=== PATIENT | male | born 1940 | race Caucasian/White ===

== ENCOUNTER 2016-06-05 08:36 | Day surgery (SDC) | payer MEDICARE, BC ==
[2016-06-05] MEDS ORDERED: Sodium Chloride 0.9% 1,000 ML IV SCH (09:00)
[2016-06-05] MEDS ORDERED: Propofol 200 MG/20 ML SDV ONE (09:41)
[2016-06-05] MEDS ORDERED: Midazolam 1 MG/ML 2 ML SDV ONE (09:41)
[2016-06-05] MEDS ORDERED: fentaNYL 100 MCG/2 ML SDV ONE (09:41)
[2016-06-05 11:46] VITALS: BP 134/61
--- NOTE | 2016-06-05 12:25 | OR ---
DATE OF PROCEDURE: 06/05/2016 PROCEDURE: Colonoscopy. FINDINGS: Normal colonoscopy. PREOPERATIVE DIAGNOSIS: Screening colonoscopy. POSTOPERATIVE DIAGNOSIS: Screening colonoscopy. RISKS: Risks, benefits, alternatives, and limitations, including, but not limited to infection, bleeding, and perforation were explained to the patient. PROCEDURE IN DETAIL: The patient was placed in left lateral decubitus position. Digital rectal exam was performed without abnormality. The scope was introduced and advanced atraumatically to the ileocecal valve. The scope was brought back to the ascending, transverse, descending colon, and retroflexed. No evidence of old or new blood. No polyps. No masses. The patient tolerated the procedure well. Jose Mark MD /[id number]
== END 2016-06-05 11:40 | disposition home or self-care (01) ==
LOC: JP.SDS 08:36
PROVIDERS: ATTEND Surgery
DX: Z12.11 Encounter for screening for malignant neoplasm of colon (principal); I10 Essential (primary) hypertension; R73.03 Prediabetes; E66.9 Obesity, unspecified; Z79.899 Other long term (current) drug therapy; F17.290 Nicotine dependence, other tobacco product, uncomplicated
CPT/HCPCS: G0121; J2250; J2704; J3010; J7040

== ENCOUNTER 2017-06-23 11:36 | Emergency (ER) | payer MEDICARE, BC ==
[2017-06-23] MEDS ORDERED: Aspirin 325 MG Tab.EC PO ONE (12:25)
--- NOTE | 2017-06-23 12:30 | EDM.PDOC ---
ED HPI GENERAL MEDICAL PROBLEM - General Chief Complaint: General Stated Complaint: LIGHTHEADED Time Seen by Provider: 06/23/17 12:12 Source of Information: Reports: Patient, Family, RN Notes Reviewed History Limitations: Reports: No Limitations - History of Present Illness INITIAL COMMENTS - FREE TEXT/NARRATIVE: 77-year-old gentleman presents to the emergency department day complaint of left -sided weakness. He states he woke up this morning feeling fine was able to ambulate without difficulty however at 8:30 this morning started having symptoms he had difficulty moving his left leg he had gait instability problems and had difficulty with fine motor skills on his left hand. He presents to the emergency department 4 hours later for further evaluation. At this time he feels his symptoms have almost completely resolved he does have some numbness and tingling in his feet and he feels his gait is still wobbly but improving. He does have a history of diabetes mellitus type 2 as well as hypertension, at this time his ABCD squared score is 7 - Related Data Allergies Allergy/AdvReac Type Severity Reaction Status Date / Time No Known Allergies Allergy Verified 06/05/16 09:02 Home Meds: Home Meds Aspirin [Halfprin] 81 mg PO DAILY 06/03/16 [History] Calcium Carbonate [Calcium] 600 mg PO DAILY 06/03/16 [History] Cetirizine [ZyrTEC] 10 mg PO DAILY 06/03/16 [History] Cyanocobalamin (Vitamin B12) [Vitamin B12] 250 mcg PO .Q48 06/03/16 [History] Ketotifen Fumarate [Zaditor] 1 drop OP BID 06/03/16 [History] Lisinopril 10 mg PO DAILY 06/03/16 [History] Mometasone Furoate [Nasonex] 2 sprays NS DAILY 06/03/16 [History] Multivitamin with Minerals [Jamal Multivitamin with Mineral] 1 tab PO DAILY 06/03 [History] Potassium Gluconate 90 mg PO DAILY 06/03/16 [History] Pyridoxine HCl [Vitamin B-6] 25 mg PO DAILY 06/03/16 [History] Zinc 50 mg PO .Q48 06/03/16 [History] metFORMIN [Glucophage] 500 mg PO BIDMEALS 06/03/16 [History] Past Medical History HEENT History: Reports: Allergic Rhinitis, Hard of Hearing, Impaired Vision, Other (See Below) Other HEENT History: Dry eye syndrome Cardiovascular History: Reports: Hypertension Musculoskeletal History: Reports: Back Pain, Chronic Endocrine/Metabolic History: Reports: Diabetes, Type II, Obesity/BMI 30+ - Infectious Disease History Infectious Disease History: Reports: Chicken Pox, Measles, Mumps - Past Surgical History Cardiovascular Surgical History: Reports: None GI Surgical History: Reports: Colonoscopy Social & Family History - Tobacco Use Smoking Status *Q: Light Tobacco Smoker Years of Tobacco use: 50 Packs/Tins Daily: 0 Second Hand Smoke Exposure: No - Caffeine Use Caffeine Use: Reports: Coffee - Alcohol Use Days Per Week of Alcohol Use: 7 Number of Drinks Per Day: 1 Total Drinks Per Week: 7 - Recreational Drug Use Recreational Drug Use: No ED ROS GENERAL - Review of Systems Review Of Systems: See Below Constitutional: Reports: No Symptoms HEENT: Reports: No Symptoms Respiratory: Reports: No Symptoms Cardiovascular: Reports: No Symptoms GI/Abdominal: Reports: No Symptoms : Reports: No Symptoms Musculoskeletal: Reports: No Symptoms Skin: Reports: No Symptoms Neurological: Reports: Numbness, Tingling, Difficulty Walking, Weakness (Left side), Gait Disturbance. Denies: Trouble Speaking ED EXAM, GENERAL - Physical Exam Exam: See Below Free Text/Narrative:: General: Male, not in any distress, alert and oriented x3 HEENT: head is atraumatic normocephalic, eyes pupils equal round reactive to light, sclera clear no conjunctivitis appreciated. Ears tympanic membranes clear and phillips landmarks and light reflex are present bilaterally canals are clear. Nose no septal deviation, nares are clear, no blood present. Mouth mucosa is moist and pink no erythema or exudate noted in soft palate, tongue is midline uvula is midline, dentition is intact. Neck: Supple no thyromegaly no tracheal deviation. Nodes: Cervical nodes subclavicular nodes nontender no palpable lymphadenopathy noted. Lungs: clear to auscultation bilaterally with symmetrical respirations, no adventitious noise appreciated. CV: Regular rate and rhythm S1 and S2 appreciated no murmurs rubs or gallops noted. Abdomen: Soft, nontender, no palpable masses or organomegaly appreciated, no distention no guarding bowel sounds are present, . Neuro: Cranial nerves II through XII grossly intact, power is 5 out 5 in upper and lower extremities, patellar reflex, biceps reflex +2 can do finger to nose without difficulty no dysdiadochokinesis no difficulty with rapid alternating movements can do [id number] without difficulty Romberg is negative, has adequate gait can do heel to toe, can toe walk and heel walk no cerebellar dysfunction no focal neurologic deficit Skin: Warm and dry, intact Extremities: No lower extremity edema appreciated, Course - Vital Signs Last Recorded V/S: Last Vital Signs Temp 98.8 F 06/23/17 11:58 Pulse 81 06/23/17 13:50 Resp 17 06/23/17 13:50 BP 147/74 H 06/23/17 13:50 Pulse Ox 95 06/23/17 13:50 - Orders/Labs/Meds Orders: Active Orders 24 hr Category Date Time Status EKG 12 Lead [EK] Urgent Ther 06/23/17 12:21 Ordered Labs: Laboratory Tests 06/23/17 06/23/17 06/23/17 Range/Units 12:33 12:33 12:33 WBC 8.2 (4.5-11.0) K/uL RBC 4.72 (4.30-5.90) M/uL Hgb 14.5 (12.0-15.0) g/dL Hct 43.0 (40.0-54.0) % MCV 91 (80-98) fL MCH 31 (27-31) pg MCHC 34 (32-36) % Plt Count 219 (150-400) K/uL Neut % (Auto) 59 (36-66) % Lymph % (Auto) 27 (24-44) % [place] % (Auto) 11 H (2-6) % Eos % (Auto) 3 (2-4) % Baso % (Auto) 0 (0-1) % ESR 11 (0-20) mm/hr PT 10.6 (9.5-12.0) sec INR 0.99 (0.80-1.20) APTT 26.4 L (27.0-36.0) sec Sodium 140 (140-148) mmol/L Potassium 4.0 (3.6-5.2) mmol/L Chloride 103 (100-108) mmol/L Carbon Dioxide 26 (21-32) mmol/L Anion Gap 11.1 (5.0-14.0) mmol/L BUN 13 (7-18) mg/dL Creatinine 0.8 (0.8-1.3) mg/dL Est Cr Clr Drug Dosing 79.78 mL/min Estimated GFR (MDRD) > 60 (>60) Glucose 94 (74-106) mg/dL Calcium 8.3 L (8.5-10.1) mg/dL Total Bilirubin 0.4 (0.2-1.0) mg/dL AST 24 (15-37) U/L ALT 32 (12-78) U/L Alkaline Phosphatase 87 (46-116) U/L Total Protein 7.1 (6.4-8.2) g/dL Albumin 3.8 (3.4-5.0) g/dL Globulin 3.3 (2.3-3.5) g/dL Albumin/Globulin Ratio 1.2 (1.2-2.2) Meds: Medications Discontinued Medications Generic Name Dose Route Start Last Admin Trade Name Freq PRN Reason Stop Dose Admin Aspirin 325 mg 06/23/17 12:25 06/23/17 12:30 Ecotrin PO 06/23/17 12:26 325 mg ONETIME ONE Administration Departure - Departure Time of Disposition: 14:35 Disposition: DC/Tfer to Acute Hospital 02 Condition: Fair Clinical Impression: Transient left leg weakness - Discharge Information Referrals: PCP,None [Primary Care Provider] - Forms: ED Department Discharge Additional Instructions: Please report to the emergency department at [facility] for further evaluation - My Orders Last 24 Hours: My Active Orders 06/23/17 12:21 EKG 12 Lead [EK] Urgent - Assessment/Plan Last 24 Hours: My Active Orders 06/23/17 12:21 EKG 12 Lead [EK] Urgent Plan: Assessment Acuity = acute Site and laterality = left-sided weakness complicated patient with known history of hypertension and diabetes mellitus type 2 Etiology = unclear etiology concern for transient ischemic event Manifestations = none of symptoms have resolved Location of injury = Home Lab values = CBC, CMP, sedimentation rate all negative EKG demonstrates normal sinus rhythm CT scan of the head shows no acute process Plan Called discussed case with Dr. Urias neurologist on-call at [facility] recommended further evaluation and then talked with emergency room physician Dr. Eckert kindly accepted the patient for further evaluation at their facility because he is been asymptomatic he will be transported private vehicle with family members This note was dictated using [employer] voice recognition software please call with any questions on syntax or andrew.
--- NOTE | 2017-06-23 12:57 | CT ---
Head wo Cont INDICATION: Left-sided weakness. Comparison: None. FINDINGS: No acute intracranial hemorrhage, mass, or edema. Generalized cerebral and cerebellar volu me loss. Patchy low attenuation in the periventricular and subcortical deep white matter is nonspecif ic, but most compatible with chronic small-vessel ischemic changes. Remainder unremarkable. IMPRESSION: No acute intracranial abnormality.
[2017-06-23 13:52] VITALS: BP 147/74
== END 2017-06-23 14:59 ==
LOC: JP.ED 11:36
DX: R29.898 Other symptoms and signs involving the musculoskeletal system (principal); I10 Essential (primary) hypertension; E11.9 Type 2 diabetes mellitus without complications; E66.9 Obesity, unspecified; F17.210 Nicotine dependence, cigarettes, uncomplicated; Z79.82 Long term (current) use of aspirin; Z79.899 Other long term (current) drug therapy
CPT/HCPCS: 36415; 70450; 80053; 85025; 85610; 85651; 85730; 93005; 99285; A9270

== ENCOUNTER 2020-09-17 13:34 | Emergency (ER) | payer MEDICARE, BC ==
[2020-09-17] MEDS ORDERED: diphenhydrAMINE 50 MG/ML SDV IVPUSH ONE ×2 (13:39→14:48)
[2020-09-17] MEDS ORDERED: methylPREDNISolone Sodium Succinate 125 MG/2 ML SDV IVPUSH ONE (13:40)
--- NOTE | 2020-09-17 14:24 | EDM.PDOC ---
ED HPI GENERAL MEDICAL PROBLEM - General Chief Complaint: Allergic Reaction Stated Complaint: STUNG BY ABOUT 6 HORNETS Time Seen by Provider: 09/17/20 13:50 Source of Information: Reports: Patient History Limitations: Reports: No Limitations - History of Present Illness INITIAL COMMENTS - FREE TEXT/NARRATIVE: 80-year-old male got stung by several wasps about an hour and a half ago, now has generalized hives, itching, somewhat lightheaded but no shortness of breath. Does not feel like his airway is swollen or having difficulty swallowing. No headache. He has not taken anything. He has no past history of allergic reactions to insect bites or stings. Onset: Sudden Duration: Hour(s): (1-1/2 hours ago) Location: Reports: Generalized (Rash is generalized, but worse on his chest and upper extremities) Associated Symptoms: Reports: Malaise, Other (Generalized pruritus) - Related Data Allergies Allergy/AdvReac Type Severity Reaction Status Date / Time No Known Allergies Allergy Verified 09/17/20 13:51 Home Meds: Home Meds Aspirin [Halfprin] 81 mg PO DAILY 06/03/16 [History] Calcium Carbonate [Calcium] 600 mg PO DAILY 06/03/16 [History] Cetirizine [ZyrTEC] 10 mg PO BID 06/03/16 [History] Ketotifen Fumarate [Zaditor] 1 drop OP BID 06/03/16 [History] Lisinopril 10 mg PO DAILY 06/03/16 [History] Mometasone Furoate [Nasonex] 2 sprays NS DAILY 06/03/16 [History] Multivitamin with Minerals [Jamal Multivitamin with Mineral] 1 tab PO DAILY 06/03/16 [History] Potassium Gluconate 90 mg PO DAILY 06/03/16 [History] Zinc 50 mg PO .Q48 06/03/16 [History] metFORMIN [Glucophage] 500 mg PO BIDMEALS 06/03/16 [History] Clopidogrel [Plavix] 75 mg PO DAILY 09/17/20 [History] Past Medical History HEENT History: Reports: Allergic Rhinitis, Hard of Hearing, Impaired Vision, Other (See Below) Other HEENT History: Dry eye syndrome Cardiovascular History: Reports: Hypertension Gastrointestinal History: Reports: None Musculoskeletal History: Reports: Back Pain, Chronic Endocrine/Metabolic History: Reports: Diabetes, Type II, Obesity/BMI 30+ - Infectious Disease History Infectious Disease History: Reports: Chicken Pox, Measles, Mumps - Past Surgical History GI Surgical History: Reports: Colonoscopy Social & Family History - Tobacco Use Tobacco Use Status *Q: Never Tobacco User - Caffeine Use Caffeine Use: Reports: Coffee - Alcohol Use Days Per Week of Alcohol Use: 7 Number of Drinks Per Day: 2 Total Drinks Per Week: 14 - Recreational Drug Use Recreational Drug Use: No ED ROS ALLERGIC REACTION - Review of Systems Review Of Systems: See Below Constitutional: Denies: Fever, Chills HEENT: Denies: Throat Pain, Vision Change Respiratory: Denies: Shortness of Breath, Cough GI/Abdominal: Denies: Nausea, Vomiting Skin: Reports: Rash (Widespread hives) Neurological: Denies: Headache ED EXAM GENERAL NO PERIP PULSE - Physical Exam Exam: See Below Exam Limited By: No Limitations General Appearance: Alert, Anxious Eye Exam: Bilateral Eye: EOMI, PERRL Throat/Mouth: Normal Inspection Head: Atraumatic Respiratory/Chest: No Respiratory Distress, Lungs Clear Neurological: Alert, Oriented Psychiatric: Anxious Skin Exam: Erythema, Other (Diffuse blanching hives present.) Course - Vital Signs Last Recorded V/S: Last Vital Signs Temp 97.7 F 09/17/20 13:50 Pulse 86 09/17/20 14:44 Resp 12 09/17/20 14:44 BP 148/72 H 09/17/20 14:44 Pulse Ox 96 09/17/20 14:44 - Orders/Labs/Meds Meds: Medications Discontinued Medications Generic Name Dose Route Start Last Admin Trade Name Tedq PRN Reason Stop Dose Admin Diphenhydramine HCl 25 mg 09/17/20 13:39 09/17/20 13:46 Diphenhydramine 50 Mg/Ml Sdv IVPUSH 09/17/20 13:40 25 mg ONETIME ONE Administration Diphenhydramine HCl 25 mg 09/17/20 14:48 09/17/20 15:00 Diphenhydramine 50 Mg/Ml Sdv IVPUSH 09/17/20 14:49 25 mg ONETIME ONE Administration Methylprednisolone Sodium Succinate 125 mg 09/17/20 13:40 09/17/20 13:47 Methylprednisolone Sodium Succinate 125 Mg/2 Ml Sdv IVPUSH 09/17/20 13:41 125 mg ONETIME ONE Administration - Re-Assessments/Exams Free Text/Narrative Re-Assessment/Exam: 09/18/20 09:43 IV was started and the patient's airway was monitored. O2 saturations remain normal, he had no respiratory distress or difficulty. 125 mg of IV Solu-Medrol and 25 mg of IV Benadryl was given. After 45 minutes patient still had significant hives but no further symptoms, an additional 25 mg of Benadryl IV was given. At discharge he was having some slight improvement but was certainly not worsening. He was given a prescription for EpiPen's, and encouraged to continue with Benadryl every 4 hours and return at any time if worsening. Departure - Departure Time of Disposition: 16:13 Disposition: Home, Self-Care 01 Clinical Impression: Allergic reaction to bee sting - Discharge Information Instructions: Bee, Wasp, or Hornet Sting, Adult Referrals: PCP,None [Primary Care Provider] - Forms: ED Department Discharge Care Plan Goals: Repeat 50 mg of Benadryl every 4 hours as needed until rash resolves. Fill prescription for EpiPen and use if stung again. Triamcinolone cream will be helpful to decrease itching and irritation of rash. Return to the emergency room if difficulty breathing. Sepsis Event Note (ED) - Evaluation Sepsis Screening Result: No Definite Risk
[2020-09-17 15:05] VITALS: BP 148/72; PULSE 86
== END 2020-09-17 16:12 | disposition home or self-care (01) ==
LOC: JP.ED 13:34
DX: T63.441A Toxic effect of venom of bees, accidental (unintentional), initial encounter (principal); L50.0 Allergic urticaria; E11.9 Type 2 diabetes mellitus without complications; I10 Essential (primary) hypertension; E66.9 Obesity, unspecified; Z79.82 Long term (current) use of aspirin; Z79.84 Long term (current) use of oral hypoglycemic drugs; Z79.02 Long term (current) use of antithrombotics/antiplatelets; Z68.31 Body mass index [BMI] 31.0-31.9, adult
CPT/HCPCS: 96374; 96375; 96376; 99283; J1200; J2930

== ENCOUNTER 2023-11-20 10:33 | Emergency (ER) | payer MEDICARE, BC ==
[2023-11-20 11:18] VITALS: BP 149/55
[2023-11-20 11:36] VITALS: PULSE 80
== END 2023-11-20 11:58 | disposition home or self-care (01) ==
LOC: JP.ED 10:33
DX: H11.431 Conjunctival hyperemia, right eye (principal); H54.7 Unspecified visual loss; I10 Essential (primary) hypertension; E11.9 Type 2 diabetes mellitus without complications; E66.9 Obesity, unspecified; Z68.30 Body mass index [BMI] 30.0-30.9, adult; Z79.82 Long term (current) use of aspirin; Z79.899 Other long term (current) drug therapy; Z79.84 Long term (current) use of oral hypoglycemic drugs
CPT/HCPCS: 99283